=== PATIENT | female | born 1960 | race Caucasian/White ===

== ENCOUNTER 2017-06-15 14:38 | Emergency (ER) | payer OTHER ==
[2017-06-15] MEDS ORDERED: solu-MEDROL 125 MG IV ONE (15:01)
[2017-06-15] MEDS ORDERED: DUONEB 0.5-3 MG/3 ml Neb IH ONE ×2 (15:01→15:21)
[2017-06-15] MEDS ORDERED: Sodium Chloride 0.9% 1000 ML 1,000 ML IV STA (15:01)
--- NOTE | 2017-06-15 15:07 | ERPHSYRPT ---
- History of Present Illness Time Seen by Provider: 06/15/17 15:04 Historian: patient Exam Limitations: no limitations Patient Subjective Stated Complaint: Pt states "I am having body aches, hard time breathing, chest pain, general weakness, and I do not feel well." Triage Nursing Assessment: PT alert and oriented X 3, skin pwd. PT ambulates without difficulty, able to speak in full clear sentences. pt slightly labored breathing. Iv established in pt left hand, 20 g via ems Physician History: mild to mod shortness of breath today, with chest tightness, given asa and duoneb by ems today, symptoms getting worse over last 2 days, no fever, hx mi, smoking, htn Aspirin Treatment Today: provided by EMS Allergies/Adverse Reactions: acetaminophen [From Darvocet-N] Allergy (Intermediate, Verified 06/15/17 14:55) propoxyphene [From Darvocet-N] Allergy (Intermediate, Verified 06/15/17 14:55) codeine Adverse Reaction (Mild, Verified 06/15/17 14:56) itch Home Medications: Alprazolam 1 mg [Xanax 1 mg] 1 mg PO TID 06/12/16 [History] Esomeprazole Magnesium [Nexium] 40 mg PO DAILY 06/12/16 [History] Gabapentin 600 mg PO BID 06/12/16 [History] Levothyroxine Sodium 75 Mcg [Synthroid 75 Mcg] 75 mcg PO DAILY 06/12/16 [ History] Metoprolol Succinate 50 mg [Toprol Xl 50 MG] 50 mg PO DAILY 06/12/16 [ History] Lisinopril/Hydrochlorothiazide [Lisinopril-Hctz 20-25 mg Tab] 1 each PO DAILY [History] Hx Tetanus, Diphtheria Vaccination/Date Given: No Hx Influenza Vaccination/Date Given: No Hx Pneumococcal Vaccination/Date Given: No Immunizations Up to Date: Yes - Review of Systems Constitutional: No Fever Eyes: No Symptoms Ears, Nose, & Throat: No Symptoms Respiratory: Cough, Dyspnea, Wheezing Cardiac: Chest Pain Abdominal/Gastrointestinal: No Symptoms Musculoskeletal: No Symptoms Skin: No Symptoms Neurological: No Symptoms Psychological: No Symptoms - Past Medical History Pertinent Past Medical History: Yes Neurological History: No Pertinent History ENT History: No Pertinent History Cardiac History: Angina, Myocardial Infarction ([place]) Respiratory History: COPD Endocrine Medical History: Hypothyroidism Musculoskeletal History: Arthritis GI Medical History: GERD History: No Pertinent History Psycho-Social History: Anxiety, Depression Female Reproductive Disorders: No Pertinent History - Past Surgical History Past Surgical History: Yes Neuro Surgical History: No Pertinent History Cardiac: No Pertinent History Respiratory: No Pertinent History Gastrointestinal: Appendectomy, Cholecystectomy Genitourinary: No Pertinent History Musculoskeletal: No Pertinent History Female Surgical History: Hysterectomy Other Surgical History: back surgery, morphine pump implants - Social History Smoking Status: Current every day smoker How long have you smoked: years Exposure to second hand smoke: Yes Drug Use: marijuana Patient Lives Alone: No - Female History Hx Last Menstrual Period: histerectomy Hx Now: No - Nursing Vital Signs Nursing Vital Signs: Initial Vital Signs Temperature 98.1 F 06/15/17 14:39 Pulse Rate 82 06/15/17 14:39 Respiratory Rate 18 06/15/17 14:39 Blood Pressure 104/73 06/15/17 14:39 O2 Sat by Pulse Oximetry 96 06/15/17 14:39 Pain Scale Pain Intensity 9 - Physical Exam General Appearance: no apparent distress Eye Exam: PERRL/EOMI Ears, Nose, Throat Exam: moist mucous membranes Neck Exam: normal inspection Respiratory Exam: wheezing, No respiratory distress Cardiovascular Exam: regular rate/rhythm Gastrointestinal/Abdomen Exam: soft, No tenderness, No rebound Extremity Exam: normal range of motion Neurologic Exam: alert, oriented x 3, cooperative Skin Exam: normal color, warm, dry SpO2 Interpretation: normal SpO2: 96 Oxygen Delivery: Room Air - Course Nursing assessment & vital signs reviewed: Yes EKG Interpreted by Me: Other (nsr 75 no stemi) Ordered Tests: Active Orders 24 hr Category Date Time Status EKG-ER Only STAT Care 06/15/17 15:01 Active CHEST 2 VIEWS (PA AND LAT) Stat Exams 06/15/17 15:02 Taken CBC W DIFF Stat Lab 06/15/17 15:35 Completed CMP Routine Lab 06/15/17 15:35 Received D-DIMER QUANTITATION Stat Lab 06/15/17 15:35 Received TROPONIN Q3H Lab 06/15/17 15:35 Received TROPONIN Q3H Lab 06/15/17 18:15 Ordered TROPONIN Q3H Lab 06/15/17 21:15 Ordered TROPONIN Q3H Lab 06/16/17 00:15 Ordered TROPONIN Q3H Lab 06/16/17 03:15 Ordered Respiratory Nebulizer STAT RT 06/15/17 15:03 Completed Medication Summary Generic Name Dose Route Start Last Admin Trade Name Quinn PRN Reason Stop Dose Admin Sodium Chloride 1,000 mls @ 999 mls/hr 06/15/17 15:01 06/15/17 15:19 Sodium Chloride 0.9% 1000 Ml IV 06/15/17 16:01 999 mls/hr .Q1H1M STA Administration Discontinued Medications Generic Name Dose Route Start Last Admin Trade Name Quinn PRN Reason Stop Dose Admin Albuterol/Ipratropium 3 ml 06/15/17 15:01 06/15/17 15:22 Duoneb 0.5-3 Mg/3 Ml Neb IH 06/15/17 15:02 3 ml STAT ONE Administration Albuterol/Ipratropium Confirm 06/15/17 15:21 Duoneb 0.5-3 Mg/3 Ml Neb Administered 06/15/17 15:22 Dose 3 ml IH .STK-MED ONE Sodium Chloride Confirm 06/15/17 15:08 Sodium Chloride 0.9% 1000 Ml Administered 06/15/17 15:09 Dose 1,000 mls @ ud .ROUTE .STK-MED ONE Methylprednisolone Sodium Succinate 125 mg 06/15/17 15:01 06/15/17 15:19 Solu-Medrol 125 Mg IV 06/15/17 15:02 125 mg STAT ONE Administration Methylprednisolone Sodium Succinate Confirm 06/15/17 15:08 Solu-Medrol 125 Mg Administered 06/15/17 15:09 Dose 125 mg .ROUTE .STK-MED ONE Lab/Rad Data: Laboratory Result Diagrams 06/15/17 15:35 Laboratory Results 06/15/17 Range/Units 15:35 WBC 12.1 H (4.0-10.5) K/mm3 RBC 5.38 (4.1-5.4) M/mm3 Hgb 16.0 (12.0-16.0) gm/dl Hct 48.0 H (35-47) % MCV 89.2 (78-100) fl MCH 29.7 (26-32) pg MCHC 33.3 (32-36) g/dl RDW 12.9 (11.5-14.0) % Plt Count 349 (150-450) K/mm3 MPV 10.7 H (6-9.5) fl Gran % 68.1 H (36.0-66.0) % Lymphocytes % 24.7 (24.0-44.0) % Monocytes % 5.6 (0.0-12.0) % Eosinophils % 1.4 (0.00-5.0) % Basophils % 0.2 (0.0-0.4) % Basophils # 0.03 (0-0.4) - Progress Progress: unchanged Progress Note: 06/15/17 15:47 pt alert and oriented x 3 leaves ama. pt aware she may suddenly or be permanently disabled. pt aware she may return at anytime. Counseled pt/family regarding: diagnosis, need for follow-up - Departure Time of Disposition: 15:48 Departure Disposition: AMA Clinical Impression: Chest pain Qualifiers: Chest pain type: unspecified Qualified Code(s): R07.9 - Chest pain, unspecified Condition: Stable Critical Care Time: No Referrals: ERIC LEPE MD [Primary Care Provider] -
[2017-06-15] MEDS ORDERED: solu-MEDROL 125 MG ONE (15:08)
[2017-06-15] MEDS ORDERED: Sodium Chloride 0.9% 1000 ML 1,000 ML ONE (15:08)
[2017-06-15 15:36] LABS: BASOPHIL % 0.2 % (0.0-0.4); Eosinophil % 1.4 % (0.00-5.0); Granulocytes % 68.1 % (36.0-66.0); Lymphocytes % 24.7 % (24.0-44.0); Mean Cell Volume 89.2 fl (78-100); Mean Corpuscular Hemoglobin 29.7 pg (26-32); Mean Platelet Volume 10.7 fl (6-9.5); Monocytes % 5.6 % (0.0-12.0); Platelet Count 349 K/mm3 (150-450); Red Blood Count 5.38 M/mm3 (4.1-5.4); Red Cell Distribution Width 12.9 % (11.5-14.0); White Blood Count 12.1 K/mm3 (4.0-10.5)
[2017-06-15 15:47] VITALS: BP 114/64; PULSE 88
[2017-06-15 15:49] VITALS: O2SAT 96
--- NOTE | 2017-06-15 16:05 | XRAY ---
Indication: Chest pain and cough. COPD. Comparison: None PA/lateral chest hyperinflated and clear. Heart is not enlarged. Vascularity normal. Bony thorax intact. Impression: Nonacute hyperinflated chest.
[2017-06-15 16:07] LABS: ALKALINE PHOSPHATASE 160 U/L (46-116); ANION GAP 16.3 MEQ/L (5-15); BLOOD UREA NITROGEN 23 mg/dL (9-20); CHLORIDE 99 mEq/L (98-107); Carbon Dioxide 27.6 mEq/L (21-32); Glucose 102 MG/DL (70-110); Potassium 3.9 mEq/L (3.5-5.1); SGOT/AST 39 U/L (15-37); SGPT/ALT 41 U/L (12-78); SODIUM 139 mEq/L (136-145); Total Protein 8.3 gm/dL (6.4-8.2)
[2017-06-15 16:08] LABS: TROPONIN < 0.017 ng/ml (0.000-0.056)
== END 2017-06-15 15:48 | disposition left against medical advice (07) ==
LOC: ED 14:38
DX: R07.9 Chest pain, unspecified (principal)
CPT/HCPCS: 36415; 71020; 80053; 84484; 85025; 85379; 93005; 94640; 96360; 96374; 99284; J2930; A9270-GY